=== PATIENT | male | born 1970 | race Caucasian/White ===

== ENCOUNTER 2016-08-16 10:25 | Emergency (ER) | payer OTHER ==
--- NOTE | 2016-08-16 15:57 | ED CLINICAL REPORT ---
Clinical Report - Physicians/Mid Levels [facility] [address] [place] [address] 08/16/2016 10:29 [id number] Time Seen: 10:50. Arrived- By private vehicle. Historian- patient. History limited by vague historian. HISTORY OF PRESENT ILLNESS Chief Complaint: DEPRESSED and SUICIDAL THOUGHTS. This started about 1 week ago. The patient has experienced situational problems related to significant other, personal finances, monetary problems and being homeless. The patient has had anxiety. Has been depressed and had suicidal thoughts. Expresses ambivalence. He inflicted self-injury to the right thigh (two stab wounds to his right thigh). The symptoms are described as severe. An injury is present. Location- right thigh. Additional history - atient was seen about 5 days ago at [place]. At that time he apparently stabbed himself in the leg with a "bayonet" thathe said at that time he had done to be "livia." When asked about this today he denies it He said that he did it because he wanted to hurt himself. He is vague about whether he feels suicidal but acknowledges that he is depressed and wants to hurt himself. Additionally he wants to have the wounds checked. REVIEW OF SYSTEMS No chills, fever, sweats, calf pain or chest pain. No cough, difficulty breathing, pedal edema, palpitations or abdominal pain. No constipation, diarrhea, nausea, vomiting or urinary problems. All systems otherwise negative, except as recorded above. SOCIAL HISTORY History of drug use: marijuana. He is homeless. Has poor social support. FAMILY HISTORY Denies family medical history. ADDITIONAL NOTES The nursing notes have been reviewed. PHYSICAL EXAM Vital Signs: 08/16/2016 10:33 BP: 133/78. HR: 88. RR: 16. O2 saturation: 100%. Temp: 97.8 F. Pain level now: 6/10. Have been reviewed. Appearance: Alert. Is disheveled. Eyes: Pupils equal, round and reactive to light. Neck: Neck supple. No carotid bruit. CVS: Normal heart rate and rhythm. Heart sounds normal. Respiratory: Breath sounds normal. Abdomen: Soft and nontender. Back: No tenderness. Skin: Skin warm and dry. He has a large bruise to the right leg. Multiple medium-sized deep stab wounds with tenderness on the right thigh. No erythema or increased warmth. Extremities: Extremities exhibit normal ROM. No lower extremity edema. Psych / Neuro: Flat affect. Cranial nerves normal (as tested). No cerebellar findings. No motor deficit. No sensory deficit. LABS, X-RAYS, AND EKG Laboratory Tests: UA-Culture if indicated: (BRIE: 08/16/2016 10:50) ( Mscvd 08/16/2016 11:24) Final results Test Result Flag Units (Reference) URINE COLOR YELLOW URINE APPEARANCE CLEAR URINE GLUCOSE NEGATIVE (NEGATIVE) URINE BILIRUBIN NEGATIVE (NEGATIVE) URINE KETONE NEGATIVE (NEGATIVE) URINE SPECIFIC GRAVITY 1.025 (1.010-1.030) URINE PH 5.5 (5.0-8.0) URINE PROTEIN NEGATIVE (NEGATIVE) URINE UROBILINOGEN 0.2 EU/dL (0.2-1.0) URINE NITRITE NEGATIVE (NEGATIVE) URINE BLOOD NEGATIVE (NEGATIVE) URINE LEUK ESTERASE NEGATIVE (NEGATIVE) URINE RBC 0-1 rbc/hpf (0-1) URINE WBC NONE SEEN wbc/hpf (0-1) URINE EPITHELIAL CELLS 1-3 EPI/hpf (0-5) URINE BACTERIA NONE SEEN (NONE SEEN) URINE COMMENT CULT NOT INDICATED URINE CULTURES ARE SET-UP BASED ON THE FOLLOWING CRITERIA:POSITIVE NITRITEPOSITIVE LEUKOCYTE ESTERASEGREATER THAN 10 WHITE BLOOD CELLSMODERATE (2+) OR GREATER BACTERIA CBC w Diff: (BRIE: 08/16/2016 10:52) ( Mscvd 08/16/2016 11:32) Final results Test Result Flag Units (Reference) WHITE BLOOD COUNT 9.4 K/uL (4.5-11.5) RED BLOOD COUNT 3.60 L M/uL (4.50-5.90) HEMOGLOBIN 11.0 L gm/dL (13.5-17.5) HEMATOCRIT 32.7 L % (41.0-53.0) MEAN CELL VOLUME 91 fL (80-100) MEAN CORPUSCULAR HGB 31 pg (26-34) MEAN CORPUSCULAR HGB CONC 34 g/dL (31-37) RED CELL DISTRIBUTION WIDTH 14.6 % (11.6-14.8) PLATELET COUNT 384 K/uL (150-400) NEUTROPHIL % 68.6 % (50-75) LYMPH % 20.0 L % (25-40) MONO % 8.8 % (3-14) EOSINOPHIL % 2.2 % (0-4) BASOPHIL % 0.4 % (0-2) Salicylate Level: (BRIE: 08/16/2016 10:52) ( [facility] 08/16/2016 12:10) Final results Test Result Flag Units (Reference) SALICYLATE <2.8 L mg/dL (2.8-20) CMP: (BRIE: 08/16/2016 10:50) ( [facility] 08/16/2016 11:57) Final results Test Result Flag Units (Reference) URINE DRUG SCREEN POSITIVE,Unconfirmed DRUGS DETECTED: THC (Cannabinoids) The urine drug screen is a qualitative screening test fordrug overdose and abuse. All screen results should beconsidered as presumptive.Drugs screened for are as follows:BenzodiazepinesCocaineAmphetamines/MetamphetaminesTHC (Tetrahydrocannabinol)OpiatesBarbituratesTCA (Tricyclic Antidepressants)MethadonePositive results are unconfirmed. For confirmation, notifythe lab for the specimen to be sent to the reference lab.All confirmations must be performed by a differentmethodology.The ingestion of natural herbal and plant productscontaining Ephedra/Ephedra metabolites can produce in urineone or more substances capable of cross reacting withamphetamine/methamphetamine immunoassays. This testprovides a preliminary result only. A more specificalternative chemical method must be used to obtain aconfirmed analytical result. GLUCOSE 105 mg/dL (70-110) BUN 12 mg/dL (7-18) CREATININE 0.8 mg/dL (0.6-1.3) Estimated GFR >60 mL/min Estimated GFR- >60 mL/min Note: Persistent reduction over 3 months in eGFR<60 mL/min/1.73 m2 defines CKD. Patients with eGFR values>=60 mL/min/1.73 m2 may also have CKD if evidence ofpersistent proteinuria. Additional information may be foundat www.kidney.org. SODIUM 141 mmol/L (136-145) POTASSIUM 4.1 mmol/L (3.5-5.1) CHLORIDE 104 mmol/L (98-107) CARBON DIOXIDE 28 mmol/L (21-32) CALCIUM 8.3 L mg/dL (8.5-10.1) TOTAL PROTEIN 6.9 g/dL (6.4-8.2) ALBUMIN 3.2 L g/dL (3.3-5.0) BILIRUBIN, TOTAL 0.5 mg/dL (0.0-1.0) ALKALINE PHOSPHATASE 118 H U/L (46-116) AST (SGOT) 79 H U/L (15-37) ALT (SGPT) 139 H U/L (12-78) ACETAMINOPHEN < 2 L ug/mL (10-30) . PROGRESS AND PROCEDURES Course of Care: Patient is stable. Consult obtained from mental [facility]. Case discussed. Consultation performed in ED. Patient/family counseled. Old medical records reviewed. (from [facility]). Disposition: Discharged. Condition: stable. CLINICAL IMPRESSION Depression. Multiple deep healing puncture wounds to the right thigh. INSTRUCTIONS Protect wound and keep wound area clean. Change dressing twice daily. You may wash wounds briefly, then dry. Apply neosporin twice daily. Stay with responsible adult family member (or other responsible adult). Warnings: Further evaluation is necessary. GENERAL WARNINGS: Return or contact your physician immediately if your condition worsens or changes unexpectedly, if not improving as expected, or if other problems arise. OTC Medications: Acetaminophen (available over the counter): take according to label instructions. Motrin (available over the counter): take according to label instructions. Understanding of the discharge instructions verbalized by patient. Follow-up with: [facility], , , [address], , [place], [address] Follow up tomorrow. Call for an appointment. Follow-up with: [facility], [facility] [employer], , , , , Follow up tomorrow. Call for the next available appointment. (Electronically signed by Glenn Veliz MD 08/21/2016 9:42)
--- NOTE | 2016-08-16 15:57 | ED CLINICAL REPORT ---
Clinical Report - Physicians/Mid Levels [facility] [address] [place] [address] 08/16/2016 10:29 [id number] Time Seen: 10:50. Arrived- By private vehicle. Historian- patient. History limited by vague historian. HISTORY OF PRESENT ILLNESS Chief Complaint: DEPRESSED and SUICIDAL THOUGHTS. This started about 1 week ago. The patient has experienced situational problems related to significant other, personal finances, monetary problems and being homeless. The patient has had anxiety. Has been depressed and had suicidal thoughts. Expresses ambivalence. He inflicted self-injury to the right thigh (two stab wounds to his right thigh). The symptoms are described as severe. An injury is present. Location- right thigh. Additional history - atient was seen about 5 days ago at [place]. At that time he apparently stabbed himself in the leg with a "bayonet" thathe said at that time he had done to be "livia." When asked about this today he denies it He said that he did it because he wanted to hurt himself. He is vague about whether he feels suicidal but acknowledges that he is depressed and wants to hurt himself. Additionally he wants to have the wounds checked. REVIEW OF SYSTEMS No chills, fever, sweats, calf pain or chest pain. No cough, difficulty breathing, pedal edema, palpitations or abdominal pain. No constipation, diarrhea, nausea, vomiting or urinary problems. All systems otherwise negative, except as recorded above. SOCIAL HISTORY History of drug use: marijuana. He is homeless. Has poor social support. FAMILY HISTORY Denies family medical history. ADDITIONAL NOTES The nursing notes have been reviewed. PHYSICAL EXAM Vital Signs: 08/16/2016 10:33 BP: 133/78. HR: 88. RR: 16. O2 saturation: 100%. Temp: 97.8 F. Pain level now: 6/10. Have been reviewed. Appearance: Alert. Is disheveled. Eyes: Pupils equal, round and reactive to light. Neck: Neck supple. No carotid bruit. CVS: Normal heart rate and rhythm. Heart sounds normal. Respiratory: Breath sounds normal. Abdomen: Soft and nontender. Back: No tenderness. Skin: Skin warm and dry. He has a large bruise to the right leg. Multiple medium-sized deep stab wounds with tenderness on the right thigh. No erythema or increased warmth. Extremities: Extremities exhibit normal ROM. No lower extremity edema. Psych / Neuro: Flat affect. Cranial nerves normal (as tested). No cerebellar findings. No motor deficit. No sensory deficit. LABS, X-RAYS, AND EKG Laboratory Tests: UA-Culture if indicated: (BRIE: 08/16/2016 10:50) ( Mscvd 08/16/2016 11:24) Final results Test Result Flag Units (Reference) URINE COLOR YELLOW URINE APPEARANCE CLEAR URINE GLUCOSE NEGATIVE (NEGATIVE) URINE BILIRUBIN NEGATIVE (NEGATIVE) URINE KETONE NEGATIVE (NEGATIVE) URINE SPECIFIC GRAVITY 1.025 (1.010-1.030) URINE PH 5.5 (5.0-8.0) URINE PROTEIN NEGATIVE (NEGATIVE) URINE UROBILINOGEN 0.2 EU/dL (0.2-1.0) URINE NITRITE NEGATIVE (NEGATIVE) URINE BLOOD NEGATIVE (NEGATIVE) URINE LEUK ESTERASE NEGATIVE (NEGATIVE) URINE RBC 0-1 rbc/hpf (0-1) URINE WBC NONE SEEN wbc/hpf (0-1) URINE EPITHELIAL CELLS 1-3 EPI/hpf (0-5) URINE BACTERIA NONE SEEN (NONE SEEN) URINE COMMENT CULT NOT INDICATED URINE CULTURES ARE SET-UP BASED ON THE FOLLOWING CRITERIA:POSITIVE NITRITEPOSITIVE LEUKOCYTE ESTERASEGREATER THAN 10 WHITE BLOOD CELLSMODERATE (2+) OR GREATER BACTERIA CBC w Diff: (BRIE: 08/16/2016 10:52) ( Mscvd 08/16/2016 11:32) Final results Test Result Flag Units (Reference) WHITE BLOOD COUNT 9.4 K/uL (4.5-11.5) RED BLOOD COUNT 3.60 L M/uL (4.50-5.90) HEMOGLOBIN 11.0 L gm/dL (13.5-17.5) HEMATOCRIT 32.7 L % (41.0-53.0) MEAN CELL VOLUME 91 fL (80-100) MEAN CORPUSCULAR HGB 31 pg (26-34) MEAN CORPUSCULAR HGB CONC 34 g/dL (31-37) RED CELL DISTRIBUTION WIDTH 14.6 % (11.6-14.8) PLATELET COUNT 384 K/uL (150-400) NEUTROPHIL % 68.6 % (50-75) LYMPH % 20.0 L % (25-40) MONO % 8.8 % (3-14) EOSINOPHIL % 2.2 % (0-4) BASOPHIL % 0.4 % (0-2) Salicylate Level: (BRIE: 08/16/2016 10:52) ( [facility] 08/16/2016 12:10) Final results Test Result Flag Units (Reference) SALICYLATE <2.8 L mg/dL (2.8-20) CMP: (BRIE: 08/16/2016 10:50) ( [facility] 08/16/2016 11:57) Final results Test Result Flag Units (Reference) URINE DRUG SCREEN POSITIVE,Unconfirmed DRUGS DETECTED: THC (Cannabinoids) The urine drug screen is a qualitative screening test fordrug overdose and abuse. All screen results should beconsidered as presumptive.Drugs screened for are as follows:BenzodiazepinesCocaineAmphetamines/MetamphetaminesTHC (Tetrahydrocannabinol)OpiatesBarbituratesTCA (Tricyclic Antidepressants)MethadonePositive results are unconfirmed. For confirmation, notifythe lab for the specimen to be sent to the reference lab.All confirmations must be performed by a differentmethodology.The ingestion of natural herbal and plant productscontaining Ephedra/Ephedra metabolites can produce in urineone or more substances capable of cross reacting withamphetamine/methamphetamine immunoassays. This testprovides a preliminary result only. A more specificalternative chemical method must be used to obtain aconfirmed analytical result. GLUCOSE 105 mg/dL (70-110) BUN 12 mg/dL (7-18) CREATININE 0.8 mg/dL (0.6-1.3) Estimated GFR >60 mL/min Estimated GFR- >60 mL/min Note: Persistent reduction over 3 months in eGFR<60 mL/min/1.73 m2 defines CKD. Patients with eGFR values>=60 mL/min/1.73 m2 may also have CKD if evidence ofpersistent proteinuria. Additional information may be foundat www.kidney.org. SODIUM 141 mmol/L (136-145) POTASSIUM 4.1 mmol/L (3.5-5.1) CHLORIDE 104 mmol/L (98-107) CARBON DIOXIDE 28 mmol/L (21-32) CALCIUM 8.3 L mg/dL (8.5-10.1) TOTAL PROTEIN 6.9 g/dL (6.4-8.2) ALBUMIN 3.2 L g/dL (3.3-5.0) BILIRUBIN, TOTAL 0.5 mg/dL (0.0-1.0) ALKALINE PHOSPHATASE 118 H U/L (46-116) AST (SGOT) 79 H U/L (15-37) ALT (SGPT) 139 H U/L (12-78) ACETAMINOPHEN < 2 L ug/mL (10-30) . PROGRESS AND PROCEDURES Course of Care: Patient is stable. Consult obtained from [facility]. Case discussed. Consultation performed in ED. Patient/family counseled. Old medical records reviewed. (from [facility] Disposition: Discharged. Condition: stable. CLINICAL IMPRESSION Depression. Multiple deep healing puncture wounds to the right thigh. INSTRUCTIONS Protect wound and keep wound area clean. Change dressing twice daily. You may wash wounds briefly, then dry. Apply neosporin twice daily. Stay with responsible adult family member (or other responsible adult). Warnings: Further evaluation is necessary. GENERAL WARNINGS: Return or contact your physician immediately if your condition worsens or changes unexpectedly, if not improving as expected, or if other problems arise. OTC Medications: Acetaminophen (available over the counter): take according to label instructions. Motrin (available over the counter): take according to label instructions. Understanding of the discharge instructions verbalized by patient. Follow-up with: [facility], , , [address], , [place], [address] Follow up tomorrow. Call for an appointment. [facility] [employer], , , , , Follow up tomorrow. Call for the next available appointment. (Electronically signed by Glenn Veliz MD 08/21/2016 9:42)
--- NOTE | 2016-08-16 15:57 | ED ORDER SUMMARY ---
..... Patient: ARABELLA NIEVES OrderSheet [facility] VisitID: [id number] [place] [address] 45y, M Registration Date/Time: 08/16/2016 ORDER SHEET Weight: 86.1 kg (stated) Allergies: No Known Drug Allergy GENERAL ORDERS: CBC w Diff Urgent (10:52 08/16/2016 Fuad KHAN) (Ack 10:54 KHoerner) (11:20 KHoerner) CMP Urgent (10:52 08/16/2016 Fuad KHAN) (Ack 10:54 KHoerner) (11:20 KHoerner) UA-Culture if indicated Urgent (10:52 08/16/2016 Fuad KHAN) (Ack 10:54 KHoerner) (11:03 JSanders R.N.) Urine Drug Screen Urgent (10:52 08/16/2016 Fuad KHAN) (Ack 10:54 KHoerner) (11:03 JSanders R.N.) Acetaminophen Level Urgent (10:52 08/16/2016 Fuad KHAN) (Ack 10:54 KHoerner) (11:20 KHoerner) Salicylate Level Urgent (10:52 08/16/2016 Fuad KHAN) (Ack 10:54 KHoerner) (11:20 KHoerner) Breathalyzer (10:52 08/16/2016 Fuad KHAN) (11:03 MARIA EUGENIAanders R.N.) Suicide Precautions (10:52 08/16/2016 Fuad KHAN) (10:55 MARIA EUGENIAanders R.N.) Old Records (10:52 08/16/2016 Fuad KHAN) (10:53 KHoerner) MEDICATION ORDERS: Nicotine Topical 21 mg (NOW) (12:49 08/16/2016 Raya R.N. verbal order read back to Fuad KHAN) (12:50 Raya R.N.) IV FLUIDS: ORDER SHEET NOTES: [Electronically signed by Ubaldo Chawla R.N. (16:38 08/16/2016)] [Electronically signed by Glenn Veliz MD (09:42 08/21/2016)] [Electronically locked/signed by Ubaldo Chawla R.N. (16:38 08/16/2016)]
--- NOTE | 2016-08-16 15:57 | ED ORDER SUMMARY ---
..... Patient: ARABELLA NIEVES OrderSheet [facility] VisitID: [id number] [place] [address] 45y, M Registration Date/Time: 08/16/2016 ORDER SHEET Weight: 86.1 kg (stated) Allergies: No Known Drug Allergy GENERAL ORDERS: CBC w Diff Urgent (10:52 08/16/2016 Fuad KHAN) (Ack 10:54 KHoerner) (11:20 KHoerner) CMP Urgent (10:52 08/16/2016 Fuad KHAN) (Ack 10:54 KHoerner) (11:20 KHoerner) UA-Culture if indicated Urgent (10:52 08/16/2016 Fuad KHAN) (Ack 10:54 KHoerner) (11:03 JSanders R.N.) Urine Drug Screen Urgent (10:52 08/16/2016 Fuad KHAN) (Ack 10:54 KHoerner) (11:03 JSanders R.N.) Acetaminophen Level Urgent (10:52 08/16/2016 Fuad KHAN) (Ack 10:54 KHoerner) (11:20 KHoerner) Salicylate Level Urgent (10:52 08/16/2016 Fuad KHAN) (Ack 10:54 KHoerner) (11:20 KHoerner) Breathalyzer (10:52 08/16/2016 Fuad KHAN) (11:03 MARIA EUGENIAanders R.N.) Suicide Precautions (10:52 08/16/2016 Fuad KHAN) (10:55 MARIA EUGENIAanders R.N.) Old Records (10:52 08/16/2016 Fuad KHAN) (10:53 KHoerner) MEDICATION ORDERS: Nicotine Topical 21 mg (NOW) (12:49 08/16/2016 Raya R.N. verbal order read back to Fuad KHAN) (12:50 Raya R.N.) IV FLUIDS: ORDER SHEET NOTES: [Electronically signed by Ubaldo Chawla R.N. (16:38 08/16/2016)] [Electronically signed by Glenn Veliz MD (09:42 08/21/2016)] [Electronically locked/signed by Ubaldo Chawla R.N. (16:38 08/16/2016)]
--- NOTE | 2016-08-16 15:57 | ED NURSING NOTES ---
Clinical Report - [facility] [place] [address] 08/16/2016 10:29 [id number] Triage time 10:33 Aug 16 2016. Acuity: LEVEL 4. Chief Complaint: LEFT LOWER EXTREMITY REDNESS. SEPSIS SCREEN: Sepsis Screen. Negative (no infection suspected/documented). JOE COMA SCORE: Joe Coma Scale: 15- eyes open spontaneously (4); best verbal response- oriented x 4 (5); best motor response- obeys commands (6). --10:38 Julee Coffman R.N. 10:33 08/16/16. BP: 133/78 (regular adult cuff) taken on the left arm, while lying. HR: 88. RR: 16. O2 saturation: 100% on room air. Temp: 97.8 F (oral). Pain level now: 10/15. --10:38 Julee Coffman R.N. BREATHALYZER: Breathalyzer (0). --10:59 Julee Coffman R.N. Weight: 86.1 kg stated. Height/Length: 73 inches Per Patient. BMI: 25. --10:36 Julee Coffman R.N. Medications None. --10:35 Julee Coffman R.N. Allergies No Known Drug Allergy. --10:35 Julee Coffman R.N. History Arrived by private vehicle. Historian: patient. ( Patient working with a [employer] and fell on to it on 08/12/16. ABX x 3 days then lost script). Injury occurred. This occurred (08/12/16). He has had swelling, redness and trouble walking. 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 PAST MEDICAL HX: Negative. Tetanus status: up-to-date. SOCIAL HX: Current every day heavy tobacco smoker- 1 pack per day. History of occasional drug use: marijuana. Recently used drugs yesterday. No alcohol use. No infectious disease exposure. ABUSE ASSESSMENT: No report of abuse. --10:38 Julee Coffman R.N. SELF HARM ASSESSMENT: A self harm assessment was performed. The patient answered "yes" to the question "Have you recently felt down, depressed, or hopeless?", "Do you have thoughts of harming or killing yourself?" and "Are you here because you tried to hurt yourself?" and "no" to the question "Have you noticed less interest or pleasure in doing things?", "Have you ever tried to hurt yourself before today?", "Have you recently had thoughts about harming or killing others?" and "Do you have any dangerous items in your possession?". The patient reports their behavior included suicidal comments. In the ED the patient has sustained a self inflicted injury. He has been placed under frequent supervision with bedside precautions. He was placed in direct sight of the nurses station. Clothes and valuables were removed and placed at the nurses station. The ED physician has been notified. (Patient is here for ABX for his leg and commented at triage that he harmed himself this time and has felt like trying to before but hasnt). --11:03 Julee Coffman R.N. PROBLEMS: no known problems. ADDITIONAL SURGERIES: Back Surgery. --10:37 Julee Coffman R.N. Interventions ID band on patient. To treatment room. --10:38 Julee Coffman R.N. PHYSICAL ASSESSMENT 10:39 08/16/16. To room via wheelchair. Patient gowned. GENERAL / NEURO / PSYCH: Oriented X 4. Appears in pain. EXTREMITIES: Erythema on the extremities. Right thigh: tenderness, swelling, laceration with controlled bleeding and multiple puncture wounds located in the anterior and lateral aspect of lower thigh. SKIN: Extremity wound present. Skin intact. Skin is warm. --10:39 Julee Coffman R.N. NURSING PROGRESS NOTES 10:40 08/16/16. The plan of care for this patient has been created. Patient gowned. Reassurance given. Two patient identifiers checked. Call light placed in reach. Side rails up x 1. Bed placed in lowest position. Brakes of bed on. Patient ready for evaluation- chart flagged and ED physician notified. --10:40 Julee Coffman R.N. ( Patient tearful saying that he stabbed himself on purpose, he says he has done this before, when asked if he is depressed and thought about suicide he says yes but he doesn't have a plan.). --10:50 Julee Coffman R.N. ( After moving patient to room #13, in site of nurses station, patient stated he is fine today and doesn't feel like hurting himself right now). --10:51 Julee Coffman R.N. ( Breathalyzer done, showed 0.00). --11:06 Boaz Son ER Tech1 Applied bulky dressing, following the application of antibiotic ointment. Secured with tape and kerlix (ointment x 2). --11:07 Nancy Walsh ER Tech1 ( PT used bathroom independently.). --11:09 Boaz Son ER Tech1 ( Patient offered something to drink or eat, he refused). --11:55 Julee Coffman R.N. late entry -12:01. ( Pt requested to see friend who is in car, spoke with MD, MD does not want patient to see friend until he evaluates the patient). --12:20 Ubaldo Chawla R.N. 12:22 08/16/16. ( Per ER MD patient was able to see friend, educational technician went to vehicle to notify friend that she can come see patient). --12:22 Ubaldo Chawla R.N. 12:50 08/16/2016 NICOTINE Topical 21 mg. Applied to the right upper arm. Allergies verified and confirmed 5 rights. --12:50 Ubaldo Chawla R.N. 12:50 08/16/16. ( Pt wanted to go smoke, pt aware he cannot at this time, gave pt a nicotine patch). --12:50 Ubaldo Chawla R.N. 12:52 08/16/16. ( PAT team called for eval). --12:52 Jade Mckeon R.N. ( Patients friend is now at patients bedside, she requests jello and cup of ice for her pop she brought with her, this was given. They were informed that the PAT team will call back with an ETA. They are both understanding of this and both admit he needs to talk to someone about his thought of injuring himself.). --13:28 Julee Coffman R.N. ( Still waiting call from PAT team on ETA). --13:46 Julee Coffman R.N. ( Patients friend left bedside to smoke, patient up for restroom and now back in room). --14:03 Julee Coffman R.N. 14:29 08/16/16. ( ETA of PAT team is 1545, notified patient and family). --14:29 Ubaldo Chawla R.N. ( Patients friend back at patients bedside.). --14:44 Julee Coffman R.N. ( PAT team has arrived). --15:13 Julee Coffman R.N. 15:22 08/16/16. ( Patient notified that PAT team has arrived). --15:22 Ubaldo Chawla R.N. ( Mental health counselor in with patient now, friend left the room). --15:30 Julee Coffman R.N. ( Patients friend back in with patient and mental health counselor). --15:35 Julee Coffman R.N. 15:51 08/16/16. ( Pt to be discharged). --15:51 Ubaldo Chawla R.N. late entry -16:14. ( Pt cleared by MHP and ER MD to go home, pt aware to follow up VICENTE.). --16:38 Ubaldo Chawla R.N. DISPOSITION / DISCHARGE 16:14 08/16/16. Condition at departure: improved. The goals identified in the patient's plan of care were met. No learning barriers present. Discharge instructions provided and reviewed with company accountant and the patient. Reviewed warnings. Reviewed medication(s). Treatments reviewed. Reviewed referrals (PCP). Patient and company accountant verbalized understanding. Written instructions provided in Spanish. The patient was discharged by the physician. He was discharged home and accompanied by company accountant. He left the Emergency Department ambulatory and via private vehicle. County Commissioner driving. ( Pt discharged home with dressing changing material, Bactrian, and snacks (sandwich, drinks, crackers)). FALL RISK ASSESSMENT: Fall risk assessment completed. No fall risk identified. --16:14 Ubaldo Chawla R.N. 16:12 08/16/16. BP: deferred. HR: deferred. RR: deferred. O2 saturation: deferred. Temp: deferred. Pain level now: 0/10. Additional comments: Pt refused DC vitals, pt stated, "I need to have a smoke". --16:14 Ubaldo Chawla R.N. 16:14 08/16/16. Departure time: 16:14. --16:14 Ubaldo Chawla R.N. Locked/Released at 08/16/2016 16:38 by Ubaldo Chawla R.N.
--- NOTE | 2016-08-16 15:57 | ED NURSING NOTES ---
Clinical Report - [facility] [place] [address] 08/16/2016 10:29 [id number] Triage time 10:33 Aug 16 2016. Acuity: LEVEL 4. Chief Complaint: LEFT LOWER EXTREMITY REDNESS. SEPSIS SCREEN: Sepsis Screen. Negative (no infection suspected/documented). JOE COMA SCORE: Joe Coma Scale: 15- eyes open spontaneously (4); best verbal response- oriented x 4 (5); best motor response- obeys commands (6). --10:38 Julee Coffman R.N. 10:33 08/16/16. BP: 133/78 (regular adult cuff) taken on the left arm, while lying. HR: 88. RR: 16. O2 saturation: 100% on room air. Temp: 97.8 F (oral). Pain level now: 10/15. --10:38 Julee Coffman R.N. BREATHALYZER: Breathalyzer (0). --10:59 Julee Coffman R.N. Weight: 86.1 kg stated. Height/Length: 73 inches Per Patient. BMI: 25. --10:36 Julee Coffman R.N. Medications None. --10:35 Julee Coffman R.N. Allergies No Known Drug Allergy. --10:35 Julee Coffman R.N. History Arrived by private vehicle. Historian: patient. ( Patient working with a [employer] and fell on to it on 08/12/16. ABX x 3 days then lost script). Injury occurred. This occurred (08/12/16). He has had swelling, redness and trouble walking. 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 PAST MEDICAL HX: Negative. Tetanus status: up-to-date. SOCIAL HX: Current every day heavy tobacco smoker- 1 pack per day. History of occasional drug use: marijuana. Recently used drugs yesterday. No alcohol use. No infectious disease exposure. ABUSE ASSESSMENT: No report of abuse. --10:38 Julee Coffman R.N. SELF HARM ASSESSMENT: A self harm assessment was performed. The patient answered "yes" to the question "Have you recently felt down, depressed, or hopeless?", "Do you have thoughts of harming or killing yourself?" and "Are you here because you tried to hurt yourself?" and "no" to the question "Have you noticed less interest or pleasure in doing things?", "Have you ever tried to hurt yourself before today?", "Have you recently had thoughts about harming or killing others?" and "Do you have any dangerous items in your possession?". The patient reports their behavior included suicidal comments. In the ED the patient has sustained a self inflicted injury. He has been placed under frequent supervision with bedside precautions. He was placed in direct sight of the nurses station. Clothes and valuables were removed and placed at the nurses station. The ED physician has been notified. (Patient is here for ABX for his leg and commented at triage that he harmed himself this time and has felt like trying to before but hasnt). --11:03 Julee Coffman R.N. PROBLEMS: no known problems. ADDITIONAL SURGERIES: Back Surgery. --10:37 Julee Coffman R.N. Interventions ID band on patient. To treatment room. --10:38 Julee Coffman R.N. PHYSICAL ASSESSMENT 10:39 08/16/16. To room via wheelchair. Patient gowned. GENERAL / NEURO / PSYCH: Oriented X 4. Appears in pain. EXTREMITIES: Erythema on the extremities. Right thigh: tenderness, swelling, laceration with controlled bleeding and multiple puncture wounds located in the anterior and lateral aspect of lower thigh. SKIN: Extremity wound present. Skin intact. Skin is warm. --10:39 Julee Coffman R.N. NURSING PROGRESS NOTES 10:40 08/16/16. The plan of care for this patient has been created. Patient gowned. Reassurance given. Two patient identifiers checked. Call light placed in reach. Side rails up x 1. Bed placed in lowest position. Brakes of bed on. Patient ready for evaluation- chart flagged and ED physician notified. --10:40 Julee Coffman R.N. ( Patient tearful saying that he stabbed himself on purpose, he says he has done this before, when asked if he is depressed and thought about suicide he says yes but he doesn't have a plan.). --10:50 Julee Coffman R.N. ( After moving patient to room #13, in site of nurses station, patient stated he is fine today and doesn't feel like hurting himself right now). --10:51 Julee Coffman R.N. ( Breathalyzer done, showed 0.00). --11:06 Boaz Son ER Tech1 Applied bulky dressing, following the application of antibiotic ointment. Secured with tape and kerlix (ointment x 2). --11:07 Nancy Walsh ER Tech1 ( PT used bathroom independently.). --11:09 Boaz Son ER Tech1 ( Patient offered something to drink or eat, he refused). --11:55 Julee Coffman R.N. late entry -12:01. ( Pt requested to see friend who is in car, spoke with MD, MD does not want patient to see friend until he evaluates the patient). --12:20 Ubaldo Chawla R.N. 12:22 08/16/16. ( Per ER MD patient was able to see friend, pharmacy technician went to vehicle to notify friend that she can come see patient). --12:22 Ubaldo Chawla R.N. 12:50 08/16/2016 NICOTINE Topical 21 mg. Applied to the right upper arm. Allergies verified and confirmed 5 rights. --12:50 Ubaldo Chawla R.N. 12:50 08/16/16. ( Pt wanted to go smoke, pt aware he cannot at this time, gave pt a nicotine patch). --12:50 Ubaldo Chawla R.N. 12:52 08/16/16. ( PAT team called for eval). --12:52 Jade Mckeon R.N. ( Patients friend is now at patients bedside, she requests jello and cup of ice for her pop she brought with her, this was given. They were informed that the PAT team will call back with an ETA. They are both understanding of this and both admit he needs to talk to someone about his thought of injuring himself.). --13:28 Julee Coffman R.N. ( Still waiting call from PAT team on ETA). --13:46 Julee Coffman R.N. ( Patients friend left bedside to smoke, patient up for restroom and now back in room). --14:03 Julee Coffman R.N. 14:29 08/16/16. ( ETA of PAT team is 1545, notified patient and family). --14:29 Ubaldo Chawla R.N. ( Patients friend back at patients bedside.). --14:44 Julee Coffman R.N. ( PAT team has arrived). --15:13 Julee Coffman R.N. 15:22 08/16/16. ( Patient notified that PAT team has arrived). --15:22 Ubaldo Chawla R.N. ( Mental health counselor in with patient now, friend left the room). --15:30 Julee Coffman R.N. ( Patients friend back in with patient and mental health counselor). --15:35 Julee Coffman R.N. 15:51 08/16/16. ( Pt to be discharged). --15:51 Ubaldo Chawla R.N. late entry -16:14. ( Pt cleared by MHP and ER MD to go home, pt aware to follow up VICENTE.). --16:38 Ubaldo Chawla R.N. DISPOSITION / DISCHARGE 16:14 08/16/16. Condition at departure: improved. The goals identified in the patient's plan of care were met. No learning barriers present. Discharge instructions provided and reviewed with domestic technician and the patient. Reviewed warnings. Reviewed medication(s). Treatments reviewed. Reviewed referrals (PCP). Patient and domestic technician verbalized understanding. Written instructions provided in Dutch. The patient was discharged by the physician. He was discharged home and accompanied by domestic technician. He left the Emergency Department ambulatory and via private vehicle. Family Counselor driving. ( Pt discharged home with dressing changing material, Bactrian, and snacks (sandwich, drinks, crackers)). FALL RISK ASSESSMENT: Fall risk assessment completed. No fall risk identified. --16:14 Ubaldo Chawla R.N. 16:12 08/16/16. BP: deferred. HR: deferred. RR: deferred. O2 saturation: deferred. Temp: deferred. Pain level now: 0/10. Additional comments: Pt refused DC vitals, pt stated, "I need to have a smoke". --16:14 Ubaldo Chawla R.N. 16:14 08/16/16. Departure time: 16:14. --16:14 Ubaldo Chawla R.N. Locked/Released at 08/16/2016 16:38 by Ubaldo Chawla R.N.
--- NOTE | 2016-08-21 09:42 | ED DISCHARGE INSTRUCTIONS ---
Patient: ARABELLA NIEVES General Instructions [facility] VisitID: [id number] [address] [place] [address] 45y, M Registration Date/Time: 08/16/2016 Depression. Multiple deep healing puncture wounds to the right thigh. INSTRUCTIONS Protect wound and keep wound area clean. Change dressing twice daily. You may wash wounds briefly, then dry. Apply neosporin twice daily. Stay with responsible adult family member (or other responsible adult). Warnings: Further evaluation is necessary. GENERAL WARNINGS: Return or contact your physician immediately if your condition worsens or changes unexpectedly, if not improving as expected, or if other problems arise. OTC Medications: Acetaminophen (available over the counter): take according to label instructions. Motrin (available over the counter): take according to label instructions. Understanding of the discharge instructions verbalized by patient. Follow-up with: [facility], , , [address], , [place], [id number] Follow up tomorrow. Call for an appointment. Follow-up with: [facility], [employer] [employer], , , , , Follow up tomorrow. Call for the next available appointment. ADDITIONAL INFORMATION Depression Depression is one of the most common mental health problems today. It is not just a state of unhappiness or sadness. It is a true disease. The cause seems to be related to a decrease in chemicals that transmit signals in the brain. Having a family history of depression, alcoholism or suicide increases the risk. Chronic illness, chronic pain, migraine headaches and high emotional stress also increase the risk. Depression can cause many different symptoms, such as: -- Loss of appetite -- Over-eating -- Not being able to sleep -- Sleeping too much -- Tiredness not related to physical exertion -- Restlessness or irritability -- Slowness of movement or speech -- Feeling depressed or withdrawn -- Loss of interest in things you once enjoyed -- Difficulty in concentrating, poor memory, have trouble making decisions -- Thoughts of harming or killing oneself, or thoughts that life is not worth living -- Low self-esteem The best treatment for depression is a combination of medicine and psychotherapy. Antidepressant medicines can reduce suffering and can improve the ability to function during the depressed period. Therapy can offer emotional support and help you understand emotional factors that may be causing the depression. Home Care: 1) Be kind to yourself. Make it a point to do things that you enjoy (gardening, walking in nature, going to a movie, etc.). Reward yourself for small successes. 2) Take care of your physical body. Eat a balanced diet (low in saturated fat and high in fruits and vegetables). Establish an exercise plan at least 3 times a week for 30 minutes. Even mild-moderate exercise (like brisk walking) can make you feel better. 3) Avoid alcohol, which can make depression worse. Follow-Up with your doctor as advised. It is important to keep in contact with a health care provider until your symptoms begin to improve. Get Prompt Medical Attention if any of the following occur: -- Feeling extreme depression, fear, anxiety, or anger toward yourself or others -- Feeling out of control -- Feeling that you may try to harm yourself or another -- Hearing voices that others do not hear -- Seeing things that others do not see -- Cant sleep or eat for 3 days in a row Puncture Wound (General) A puncture wound is a hole through the skin. Bacteria, dirt and debris can be drawn into this wound, increasing the risk of infection. However, antibiotics are usually not prescribed for this injury unless signs of infection are already present. Therefore, it is important to observe the wound closely for the signs of infection listed below. Home Care: If your wound is on an arm, hand, leg, or foot, keep that part raised during the first 48 hours to reduce swelling and pain. Keep the wound clean and dry. If a bandage was applied and it becomes wet or dirty, replace it. Otherwise, leave it in place for the next 24 hours. You may use acetaminophen (Tylenol) or ibuprofen (Motrin, Advil) to control pain, unless another medicine was prescribed. [NOTE: If you have chronic liver or kidney disease or ever had a stomach ulcer or GI bleeding, talk with your doctor before using these medicines.] You may shower as usual. However, do not soak the area in water (no baths or swimming) during the first 48 hours. Follow Up: Most puncture wounds heal within 10 days. However, an infection may sometimes occur despite proper treatment. If small particles were drawn into the puncture wound (such as fragments of cloth, rubber, wood or dirt), an infection may occur. These fragments are very hard to find during the first exam since it is not possible to get a good look inside a puncture wound and they do not show on an X-ray. Antibiotics and a minor surgical procedure to find and remove the foreign object will be needed if this happens. Therefore, check the wound daily for the warning signs listed below. Get Prompt Medical Attention if any of the following occur: SIGNS OF INFECTION: Increasing pain in the wound Redness, swelling, pus or red lines coming from the wound Fever of 100.4F (38C) or higher, or as directed by your healthcare provider Bandage Change If the bandage becomes wet or dirty, replace it. Otherwise, leave it in place for the first 24 hours. Then once a day: After removing the bandage, wash the area with soap and water. Use a wet cotton swab to loosen and remove any blood or crust that forms on the wound. After cleaning, apply a thin layer of antibiotic ointment or cream. Reapply the bandage. You may shower as usual after the first 24 hours. If the bandage is on an arm or leg, cover it with a plastic bag rubber banded at both ends before showering. No tub baths or swimming until the bandage is removed and the wound healed (at least 7 days). Acetaminophen Oral tablet What is this medicine? ACETAMINOPHEN (a set a SKYLAR tanisha fen) is a pain reliever. It is used to treat mild pain and fever. How should I use this medicine? Take this medicine by mouth with a glass of water. Follow the directions on the package or prescription label. Take your medicine at regular intervals. Do not take your medicine more often than directed. Talk to your staff services manager regarding the use of this medicine in children. While this drug may be prescribed for children as young as 6 years of age for selected conditions, precautions do apply. What side effects may I notice from receiving this medicine? Side effects that you should report to your doctor or health respiratory care assistant as soon as possible: allergic reactions like skin rash, itching or hives, swelling of the face, lips, or tongue breathing problems fever or sore throat redness, blistering, peeling or loosening of the skin, including inside the mouth trouble passing urine or change in the amount of urine unusual bleeding or bruising unusually weak or tired yellowing of the eyes or skin Side effects that usually do not require medical attention (report to your doctor or health respiratory care assistant if they continue or are bothersome): headache nausea, stomach upset What may interact with this medicine? alcohol imatinib isoniazid other medicines with acetaminophen What if I miss a dose? If you miss a dose, take it as soon as you can. If it is almost time for your next dose, take only that dose. Do not take double or extra doses. Where should I keep my medicine? Keep out of reach of children. Store at room temperature between 20 and 25 degrees C (68 and 77 degrees F). Protect from moisture and heat. Throw away any unused medicine after the expiration date. What should I tell my health care provider before I take this medicine? They need to know if you have any of these conditions: if you frequently drink alcohol containing drinks liver disease an unusual or allergic reaction to acetaminophen, other medicines, foods, dyes or preservatives or trying to get breast-feeding What should I watch for while using this medicine? Tell your doctor or health respiratory care assistant if the pain lasts more than 10 days (5 days for children), if it gets worse, or if there is a new or different kind of pain. Also, check with your doctor if a fever lasts for more than 3 days. Do not take other medicines that contain acetaminophen with this medicine. Always read labels carefully. If you have questions, ask your doctor or pharmacist. If you take too much acetaminophen get medical help right away. Too much acetaminophen can be very dangerous and cause liver damage. Even if you do not have symptoms, it is important to get help right away. Ibuprofen Oral tablet What is this medicine? IBUPROFEN (eye BYOO proe fen) is a non-steroidal anti-inflammatory drug (NSAID). It is used for dental pain, fever, headaches or migraines, osteoarthritis, rheumatoid arthritis, or painful monthly periods. It can also relieve minor aches and pains caused by a cold, flu, or sore throat. How should I use this medicine? Take this medicine by mouth with a glass of water. Follow the directions on the prescription label. Take this medicine with food if your stomach gets upset. Try to not lie down for at least 10 minutes after you take the medicine. Take your medicine at regular intervals. Do not take your medicine more often than directed. A special MedGuide will be given to you by the pharmacist with each prescription and refill. Be sure to read this information carefully each time. Talk to your staff services manager regarding the use of this medicine in children. Special care may be needed. What side effects may I notice from receiving this medicine? Side effects that you should report to your doctor or health respiratory care assistant as soon as possible: allergic reactions like skin rash, itching or hives, swelling of the face, lips, or tongue black or bloody stools, blood in the urine or in vomit breathing problems changes in vision chest pain general ill feeling or flu-like symptoms nausea or vomiting redness, blistering, peeling or loosening of the skin, including inside the mouth slurred speech or weakness on one side of the body stomach pain unexplained weight gain or swelling unusually weak or tired yellowing of eyes or skin Side effects that usually do not require medical attention (report to your doctor or health respiratory care assistant if they continue or are bothersome): constipation or diarrhea dizziness gas or heartburn stomach upset What may interact with this medicine? Do not take this medicine with any of the following medications: cidofovir ketorolac methotrexate pemetrexed This medicine may also interact with the following medications: alcohol aspirin diuretics lithium other drugs for inflammation like prednisone warfarin What if I miss a dose? If you miss a dose, take it as soon as you can. If it is almost time for your next dose, take only that dose. Do not take double or extra doses. Where should I keep my medicine? Keep out of the reach of children. Store at room temperature between 15 and 30 degrees C (59 and 86 degrees F). Keep container tightly closed. Throw away any unused medicine after the expiration date. What should I tell my health care provider before I take this medicine? They need to know if you have any of these conditions: asthma cigarette smoker drink more than 3 alcohol containing drinks a day heart disease or circulation problems such as heart failure or leg edema (fluid retention) high blood pressure kidney disease liver disease stomach bleeding or ulcers an unusual or allergic reaction to ibuprofen, aspirin, other NSAIDS, other medicines, foods, dyes, or preservatives or trying to get breast-feeding What should I watch for while using this medicine? Tell your doctor or healthcare professional if your symptoms do not start to get better or if they get worse. This medicine does not prevent heart attack or stroke. In fact, this medicine may increase the chance of a heart attack or stroke. The chance may increase with longer use of this medicine and in people who have heart disease. If you take aspirin to prevent heart attack or stroke, talk with your doctor or health respiratory care assistant. Do not take other medicines that contain aspirin, ibuprofen, or naproxen with this medicine. Side effects such as stomach upset, nausea, or ulcers may be more likely to occur. Many medicines available without a prescription should not be taken with this medicine. This medicine can cause ulcers and bleeding in the stomach and intestines at any time during treatment. Ulcers and bleeding can happen without warning symptoms and can cause . To reduce your risk, do not smoke cigarettes or drink alcohol while you are taking this medicine. You may get drowsy or dizzy. Do not drive, use machinery, or do anything that needs mental alertness until you know how this medicine affects you. Do not stand or sit up quickly, especially if you are an older patient. This reduces the risk of dizzy or fainting spells. This medicine can cause you to bleed more easily. Try to avoid damage to your teeth and gums when you brush or floss your teeth. You have been given the following additional information: Depression Puncture Wound, General Dressing Change Acetaminophen Oral tablet Ibuprofen Oral tablet Stay with responsible adult family member (or other responsible adult). (Electronically signed by Glenn Veliz MD 08/21/2016 9:42)
--- NOTE | 2016-08-21 09:43 | ED MAR SUMMARY ---
..... Medication Administration Record [facility] [address] [place] [address] Patient: ARABELLA NIEVES Visit ID: [id number] 45y, M Weight: 86.1 kg Height/Length: 73 in BMI: 25 ALLERGIES: No Known Drug Allergy Given 12:50 08/16/2016 Ubaldo Chawla R.N. Medication Administered: NICOTINE [TOPICAL], Dose: 21 mg Topical. Medication Ordered: Nicotine Topical 21 mg (NOW).
--- NOTE | 2016-08-21 09:43 | ED MED RECONCILIATION SUMMARY ---
Patient: ARABELLA NIEVES Medication Reconciliation Report [facility] VisitID: [id number] [address] [place] [address] 45y, M Registration Date/Time: 08/16/2016 Weight: 86.1 kg Height/Length: 73 in. BMI: 25.0 ALLERGIES: No Known Drug Allergy The patient's Home Medications are listed below: NONE. The source(s) of the original Home Medication information: Not obtained. The following Medications were given to the patient in the Emergency Department: NICOTINE [TOPICAL] Topical 21 mg, administered: 08/16/2016 12:50:00 PM The following Medications were prescribed to the patient: Acetaminophen (available over the counter): take according to label instructions. -- Glenn Veliz MD Motrin (available over the counter): take according to label instructions. -- Glenn Veliz MD
--- NOTE | 2016-08-21 09:43 | ED MED RECONCILIATION SUMMARY ---
Patient: ARABELLA NIEVES Medication Reconciliation Report [facility] VisitID: [id number] [address] [place] [address] 45y, M Registration Date/Time: 08/16/2016 Weight: 86.1 kg Height/Length: 73 in. BMI: 25.0 ALLERGIES: No Known Drug Allergy The patient's Home Medications are listed below: NONE. The source(s) of the original Home Medication information: Not obtained. The following Medications were given to the patient in the Emergency Department: NICOTINE [TOPICAL] Topical 21 mg, administered: 08/16/2016 12:50:00 PM The following Medications were prescribed to the patient: Acetaminophen (available over the counter): take according to label instructions. -- Glenn Veliz MD Motrin (available over the counter): take according to label instructions. -- Glenn Veliz MD
--- NOTE | 2016-08-21 09:43 | ED MAR SUMMARY ---
..... Medication Administration Record [facility] [address] [place] [address] Patient: ARABELLA NIEVES Visit ID: [id number] 45y, M Weight: 86.1 kg Height/Length: 73 in BMI: 25 ALLERGIES: No Known Drug Allergy Given 12:50 08/16/2016 Ubaldo Chawla R.N. Medication Administered: NICOTINE [TOPICAL], Dose: 21 mg Topical. Medication Ordered: Nicotine Topical 21 mg (NOW).
== END 2016-08-16 16:14 | disposition home or self-care (01) ==
LOC: ED SRH 10:25
DX: F32.9 Major depressive disorder, single episode, unspecified (principal); S71.131A Puncture wound without foreign body, right thigh, initial encounter; Y28.2XXA Contact with sword or dagger, undetermined intent, initial encounter; Y93.9 Activity, unspecified; Y92.9 Unspecified place or not applicable; Y99.9 Unspecified external cause status; Z59.0 Homelessness
CPT/HCPCS: 90004; 90100; 90939; 92780; 95059; 97000

== ENCOUNTER 2016-09-03 21:07 | Emergency (ER) | payer OTHER ==
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
--- NOTE | 2016-09-03 22:25 | ED DISCHARGE INSTRUCTIONS ---
Patient: ARABELLA NIEVES General Instructions [facility] VisitID: [id number] [address] [place] [address] 45y, M Registration Date/Time: 09/03/2016 Wound check. Single deep healing laceration to the right thigh.Treatment of laceration not delayed. No infection or foreign body present. INSTRUCTIONS Protect wound and keep wound area clean. You may wash wounds briefly, then dry. Warnings: CONTROLLED SUBSTANCE WARNINGS: The reason for controlled substance is related to an acute illness. Reviewed the risks and benefits of the medication and tolerance and dependence. Discussed warnings with the patient (Do NOT mix any prescriptions with any drugs or alcohol!). GENERAL WARNINGS: Return or contact your physician immediately if your condition worsens or changes unexpectedly, if not improving as expected, or if other problems arise. Specifically return if problem worsens. Prescription Medications: Zofran 4 mg: Take 1 orally every six hours as needed for nausea/vomiting. Dispense ten (10). No refills. Substitution is permissible. [place] 5 mg / 325 mg tablets: take 1 to 2 orally every 6 hours as needed for pain. Dispense fifteen (15). No refills. Substitution is permissible. Motrin 800 mg tablets: take 1 tablet orally every 8 hours as needed for pain. Dispense thirty (30). No refills. Substitution is permissible. Bactrim DS 800 mg / 160 mg: Take 1 tablet orally every 12 hours for 7 days. Dispense fourteen (14). No refills. Substitution is permissible. Clindamycin 300 mg: take 1 capsule orally every 6 hours for 7 days. No refills. Ativan 1 mg: Take 1 orally every 8 hours as needed for anxiety. Dispense fifteen (15). No refills. Substitution is permissible. Follow-up: Follow up with a wound care clinic Monday as scheduled even if well. Summary of care provided to patient. Follow up with doctor counselor Monday as scheduled even if well. Summary of care provided to patient. Understanding of the discharge instructions verbalized by patient and family. ADDITIONAL INFORMATION Ondansetron Oral disintegrating tablet What is this medicine? ONDANSETRON (on LASHAUN se david) is used to treat nausea and vomiting caused by chemotherapy. It is also used to prevent or treat nausea and vomiting after surgery. How should I use this medicine? These tablets are made to dissolve in the mouth. Do not try to push the tablet through the foil backing. With dry hands, peel away the foil backing and gently remove the tablet. Place the tablet in the mouth and allow it to dissolve, then swallow. While you may take these tablets with water, it is not necessary to do so. Talk to your sterile processing tech regarding the use of this medicine in children. Special care may be needed. What side effects may I notice from receiving this medicine? Side effects that you should report to your doctor or health direct care supervisor as soon as possible: allergic reactions like skin rash, itching or hives, swelling of the face, lips, or tongue breathing problems dizziness fast or irregular heartbeat feeling faint or lightheaded, falls fever and chills swelling of the hands and feet tightness in the chest Side effects that usually do not require medical attention (report to your doctor or health direct care supervisor if they continue or are bothersome): constipation or diarrhea headache What may interact with this medicine? Do not take this medicine with any of the following medications: -apomorphine -cisapride -dofetilide -dronedarone -pimozide -thioridazine -ziprasidone This medicine may also interact with the following medications: -carbamazepine -phenytoin -rifampicin -tramadol -other medicines that prolong the QT interval (cause an abnormal heart rhythm) What if I miss a dose? If you miss a dose, take it as soon as you can. If it is almost time for your next dose, take only that dose. Do not take double or extra doses. Where should I keep my medicine? Keep out of the reach of children. Store between 2 and 30 degrees C (36 and 86 degrees F). Throw away any unused medicine after the expiration date. What should I tell my health care provider before I take this medicine? They need to know if you have any of these conditions: heart disease history of irregular heartbeat liver disease low levels of magnesium or potassium in the blood an unusual or allergic reaction to ondansetron, granisetron, other medicines, foods, dyes, or preservatives or trying to get breast-feeding What should I watch for while using this medicine? Check with your doctor or health direct care supervisor as soon as you can if you have any sign of an allergic reaction. Hydrocodone Bitartrate, Acetaminophen Oral tablet What is this medicine? ACETAMINOPHEN; HYDROCODONE (a set a SKYLAR tanisha fen; casper droe KOE done) is a pain reliever. It is used to treat mild to moderate pain. How should I use this medicine? Take this medicine by mouth. Swallow it with a full glass of water. Follow the directions on the prescription label. If the medicine upsets your stomach, take the medicine with food or milk. Do not take more than you are told to take. Talk to your sterile processing tech regarding the use of this medicine in children. This medicine is not approved for use in children. What side effects may I notice from receiving this medicine? Side effects that you should report to your doctor or health direct care supervisor as soon as possible: allergic reactions like skin rash, itching or hives, swelling of the face, lips, or tongue breathing problems confusion feeling faint or lightheaded, falls stomach pain yellowing of the eyes or skin Side effects that usually do not require medical attention (report to your doctor or health direct care supervisor if they continue or are bothersome): nausea, vomiting stomach upset What may interact with this medicine? alcohol antihistamines isoniazid medicines for depression, anxiety, or psychotic disturbances medicines for sleep muscle relaxants naltrexone narcotic medicines (opiates) for pain phenobarbital ritonavir tramadol What if I miss a dose? If you miss a dose, take it as soon as you can. If it is almost time for your next dose, take only that dose. Do not take double or extra doses. Where should I keep my medicine? Keep out of the reach of children. This medicine can be abused. Keep your medicine in a safe place to protect it from theft. Do not share this medicine with anyone. Selling or giving away this medicine is dangerous and against the law. Store at room temperature between 15 and 30 degrees C (59 and 86 degrees F). Protect from light. Keep container tightly closed. Throw away any unused medicine after the expiration date. Discard unused medicine and used packaging carefully. Pets and children can be harmed if they find used or lost packages. What should I tell my health care provider before I take this medicine? They need to know if you have any of these conditions: brain tumor Crohn's disease, inflammatory bowel disease, or ulcerative colitis drink more than 3 alcohol-containing drinks per day drug abuse or addiction head injury heart or circulation problems kidney disease or problems going to the bathroom liver disease lung disease, asthma, or breathing problems an unusual or allergic reaction to acetaminophen, hydrocodone, other opioid analgesics, other medicines, foods, dyes, or preservatives or trying to get breast-feeding What should I watch for while using this medicine? Tell your doctor or health direct care supervisor if your pain does not go away, if it gets worse, or if you have new or a different type of pain. You may develop tolerance to the medicine. Tolerance means that you will need a higher dose of the medicine for pain relief. Tolerance is normal and is expected if you take the medicine for a long time. Do not suddenly stop taking your medicine because you may develop a severe reaction. Your body becomes used to the medicine. This does NOT mean you are addicted. Addiction is a behavior related to getting and using a drug for a non-medical reason. If you have pain, you have a medical reason to take pain medicine. Your doctor will tell you how much medicine to take. If your doctor wants you to stop the medicine, the dose will be slowly lowered over time to avoid any side effects. You may get drowsy or dizzy when you first start taking the medicine or change doses. Do not drive, use machinery, or do anything that may be dangerous until you know how the medicine affects you. Stand or sit up slowly. There are different types of narcotic medicines (opiates) for pain. If you take more than one type at the same time, you may have more side effects. Give your health care provider a list of all medicines you use. Your doctor will tell you how much medicine to take. Do not take more medicine than directed. Call emergency for help if you have problems breathing. The medicine will cause constipation. Try to have a bowel movement at least every 2 to 3 days. If you do not have a bowel movement for 3 days, call your doctor or health direct care supervisor. Too much acetaminophen can be very dangerous. Do not take Tylenol (acetaminophen) or medicines that contain acetaminophen with this medicine. Many non-prescription medicines contain acetaminophen. Always read the labels carefully. Ibuprofen Oral tablet What is this medicine? IBUPROFEN (eye BYOO proe fen) is a non-steroidal anti-inflammatory drug (NSAID). It is used for dental pain, fever, headaches or migraines, osteoarthritis, rheumatoid arthritis, or painful monthly periods. It can also relieve minor aches and pains caused by a cold, flu, or sore throat. How should I use this medicine? Take this medicine by mouth with a glass of water. Follow the directions on the prescription label. Take this medicine with food if your stomach gets upset. Try to not lie down for at least 10 minutes after you take the medicine. Take your medicine at regular intervals. Do not take your medicine more often than directed. A special MedGuide will be given to you by the pharmacist with each prescription and refill. Be sure to read this information carefully each time. Talk to your sterile processing tech regarding the use of this medicine in children. Special care may be needed. What side effects may I notice from receiving this medicine? Side effects that you should report to your doctor or health direct care supervisor as soon as possible: allergic reactions like skin rash, itching or hives, swelling of the face, lips, or tongue black or bloody stools, blood in the urine or in vomit breathing problems changes in vision chest pain general ill feeling or flu-like symptoms nausea or vomiting redness, blistering, peeling or loosening of the skin, including inside the mouth slurred speech or weakness on one side of the body stomach pain unexplained weight gain or swelling unusually weak or tired yellowing of eyes or skin Side effects that usually do not require medical attention (report to your doctor or health direct care supervisor if they continue or are bothersome): constipation or diarrhea dizziness gas or heartburn stomach upset What may interact with this medicine? Do not take this medicine with any of the following medications: cidofovir ketorolac methotrexate pemetrexed This medicine may also interact with the following medications: alcohol aspirin diuretics lithium other drugs for inflammation like prednisone warfarin What if I miss a dose? If you miss a dose, take it as soon as you can. If it is almost time for your next dose, take only that dose. Do not take double or extra doses. Where should I keep my medicine? Keep out of the reach of children. Store at room temperature between 15 and 30 degrees C (59 and 86 degrees F). Keep container tightly closed. Throw away any unused medicine after the expiration date. What should I tell my health care provider before I take this medicine? They need to know if you have any of these conditions: asthma cigarette smoker drink more than 3 alcohol containing drinks a day heart disease or circulation problems such as heart failure or leg edema (fluid retention) high blood pressure kidney disease liver disease stomach bleeding or ulcers an unusual or allergic reaction to ibuprofen, aspirin, other NSAIDS, other medicines, foods, dyes, or preservatives or trying to get breast-feeding What should I watch for while using this medicine? Tell your doctor or healthcare professional if your symptoms do not start to get better or if they get worse. This medicine does not prevent heart attack or stroke. In fact, this medicine may increase the chance of a heart attack or stroke. The chance may increase with longer use of this medicine and in people who have heart disease. If you take aspirin to prevent heart attack or stroke, talk with your doctor or health direct care supervisor. Do not take other medicines that contain aspirin, ibuprofen, or naproxen with this medicine. Side effects such as stomach upset, nausea, or ulcers may be more likely to occur. Many medicines available without a prescription should not be taken with this medicine. This medicine can cause ulcers and bleeding in the stomach and intestines at any time during treatment. Ulcers and bleeding can happen without warning symptoms and can cause . To reduce your risk, do not smoke cigarettes or drink alcohol while you are taking this medicine. You may get drowsy or dizzy. Do not drive, use machinery, or do anything that needs mental alertness until you know how this medicine affects you. Do not stand or sit up quickly, especially if you are an older patient. This reduces the risk of dizzy or fainting spells. This medicine can cause you to bleed more easily. Try to avoid damage to your teeth and gums when you brush or floss your teeth. Sulfamethoxazole, Trimethoprim Oral tablet What is this medicine? SULFAMETHOXAZOLE; TRIMETHOPRIM or SMX-TMP (suhl fuh meth OK qamar zohl; trye METH oh prim) is a combination of a sulfonamide antibiotic and a second antibiotic, trimethoprim. It is used to treat or prevent certain kinds of bacterial infections. It will not work for colds, flu, or other viral infections. How should I use this medicine? Take this medicine by mouth with a full glass of water. Follow the directions on the prescription label. Take your medicine at regular intervals. Do not take it more often than directed. Do not skip doses or stop your medicine early. Talk to your sterile processing tech regarding the use of this medicine in children. Special care may be needed. This medicine has been used in children as young as 2 months of age. What side effects may I notice from receiving this medicine? Side effects that you should report to your doctor or health direct care supervisor as soon as possible: allergic reactions like skin rash or hives, swelling of the face, lips, or tongue breathing problems fever or chills, sore throat irregular heartbeat, chest pain joint or muscle pain pain or difficulty passing urine red pinpoint spots on skin redness, blistering, peeling or loosening of the skin, including inside the mouth unusual bleeding or bruising unusually weak or tired yellowing of the eyes or skin Side effects that usually do not require medical attention (report to your doctor or health direct care supervisor if they continue or are bothersome): diarrhea dizziness headache loss of appetite nausea, vomiting nervousness What may interact with this medicine? Do not take this medicine with any of the following medications: aminobenzoate potassium dofetilide metronidazole This medicine may also interact with the following medications: YOLANDA inhibitors like benazepril, enalapril, lisinopril, and ramipril cyclosporine digoxin diuretics indomethacin medicines for diabetes methenamine methotrexate phenytoin potassium supplements pyrimethamine sulfinpyrazone tricyclic antidepressants warfarin What if I miss a dose? If you miss a dose, take it as soon as you can. If it is almost time for your next dose, take only that dose. Do not take double or extra doses. Where should I keep my medicine? Keep out of the reach of children. Store at room temperature between 20 to 25 degrees C (68 to 77 degrees F). Protect from light. Throw away any unused medicine after the expiration date. What should I tell my health care provider before I take this medicine? They need to know if you have any of these conditions: anemia asthma being treated with anticonvulsants if you frequently drink alcohol containing drinks kidney disease liver disease low level of folic acid or [id number] dehydrogenase poor nutrition or malabsorption porphyria severe allergies thyroid disorder an unusual or allergic reaction to sulfamethoxazole, trimethoprim, sulfa drugs, other medicines, foods, dyes, or preservatives or trying to get breast-feeding What should I watch for while using this medicine? Tell your doctor or health direct care supervisor if your symptoms do not improve. Drink several glasses of water a day to reduce the risk of kidney problems. Do not treat diarrhea with over the counter products. Contact your doctor if you have diarrhea that lasts more than 2 days or if it is severe and watery. This medicine can make you more sensitive to the sun. Keep out of the sun. If you cannot avoid being in the sun, wear protective clothing and use a sunscreen. Do not use sun lamps or tanning beds/booths. Clindamycin Hydrochloride Oral capsule What is this medicine? CLINDAMYCIN (JEFRY Dwyer) is a lincosamide antibiotic. It is used to treat certain kinds of bacterial infections. It will not work for colds, flu, or other viral infections. How should I use this medicine? Take this medicine by mouth with a full glass of water. Follow the directions on the prescription label. You can take this medicine with food or on an empty stomach. If the medicine upsets your stomach, take it with food. Take your medicine at regular intervals. Do not take your medicine more often than directed. Take all of your medicine as directed even if you think your are better. Do not skip doses or stop your medicine early. Talk to your sterile processing tech regarding the use of this medicine in children. Special care may be needed. What side effects may I notice from receiving this medicine? Side effects that you should report to your doctor or health direct care supervisor as soon as possible: allergic reactions like skin rash, itching or hives, swelling of the face, lips, or tongue dark urine pain on swallowing redness, blistering, peeling or loosening of the skin, including inside the mouth unusual bleeding or bruising unusually weak or tired yellowing of eyes or skin Side effects that usually do not require medical attention (report to your doctor or health direct care supervisor if they continue or are bothersome): diarrhea itching in the rectal or genital area joint pain nausea, vomiting stomach pain What may interact with this medicine? chloramphenicol erythromycin kaolin products What if I miss a dose? If you miss a dose, take it as soon as you can. If it is almost time for your next dose, take only that dose. Do not take double or extra doses. Where should I keep my medicine? Keep out of the reach of children. Store at room temperature between 20 and 25 degrees C (68 and 77 degrees F). Throw away any unused medicine after the expiration date. What should I tell my health care provider before I take this medicine? They need to know if you have any of these conditions: kidney disease liver disease stomach problems like colitis an unusual or allergic reaction to clindamycin, lincomycin, or other medicines, foods, dyes like tartrazine or preservatives or trying to get breast-feeding What should I watch for while using this medicine? Tell your doctor or healthcare professional if your symptoms do not start to get better or if they get worse. Do not treat diarrhea with over the counter products. Contact your doctor if you have diarrhea that lasts more than 2 days or if it is severe and watery. Lorazepam Oral tablet What is this medicine? LORAZEPAM (rolanda A ze yoni) is a benzodiazepine. It is used to treat anxiety. How should I use this medicine? Take this medicine by mouth with a glass of water. Follow the directions on the prescription label. If it upsets your stomach, take it with food or milk. Take your medicine at regular intervals. Do not take it more often than directed. Do not stop taking except on the advice of your doctor or health direct care supervisor. Talk to your sterile processing tech regarding the use of this medicine in children. Special care may be needed. What side effects may I notice from receiving this medicine? Side effects that you should report to your doctor or health direct care supervisor as soon as possible: changes in vision confusion depression mood changes, excitability or aggressive behavior movement difficulty, staggering or jerky movements muscle cramps restlessness weakness or tiredness Side effects that usually do not require medical attention (report to your doctor or health direct care supervisor if they continue or are bothersome): constipation or diarrhea difficulty sleeping, nightmares dizziness, drowsiness headache nausea, vomiting What may interact with this medicine? barbiturate medicines for inducing sleep or treating seizures, like phenobarbital clozapine medicines for depression, mental problems or psychiatric disturbances medicines for sleep phenytoin probenecid theophylline valproic acid What if I miss a dose? If you miss a dose, take it as soon as you can. If it is almost time for your next dose, take only that dose. Do not take double or extra doses. Where should I keep my medicine? Keep out of the reach of children. This medicine can be abused. Keep your medicine in a safe place to protect it from theft. Do not share this medicine with anyone. Selling or giving away this medicine is dangerous and against the law. Store at room temperature between 20 and 25 degrees C (68 and 77 degrees F). Protect from light. Keep container tightly closed. Throw away any unused medicine after the expiration date. What should I tell my health care provider before I take this medicine? They need to know if you have any of these conditions: alcohol or drug abuse problem bipolar disorder, depression, psychosis or other mental health condition glaucoma kidney or liver disease lung disease or breathing difficulties myasthenia gravis Parkinson's disease seizures or a history of seizures suicidal thoughts an unusual or allergic reaction to lorazepam, other benzodiazepines, foods, dyes, or preservatives or trying to get breast-feeding What should I watch for while using this medicine? Visit your doctor or health direct care supervisor for regular checks on your progress. Your body may become dependent on this medicine, ask your doctor or health direct care supervisor if you still need to take it. However, if you have been taking this medicine regularly for some time, do not suddenly stop taking it. You must gradually reduce the dose or you may get severe side effects. Ask your doctor or health direct care supervisor for advice before increasing or decreasing the dose. Even after you stop taking this medicine it can still affect your body for several days. You may get drowsy or dizzy. Do not drive, use machinery, or do anything that needs mental alertness until you know how this medicine affects you. To reduce the risk of dizzy and fainting spells, do not stand or sit up quickly, especially if you are an older patient. Alcohol may increase dizziness and drowsiness. Avoid alcoholic drinks. Do not treat yourself for coughs, colds or allergies without asking your doctor or health direct care supervisor for advice. Some ingredients can increase possible side effects. You have been given the following additional information: Ondansetron Oral disintegrating tablet Hydrocodone Bitartrate, Acetaminophen Oral tablet Ibuprofen Oral tablet Sulfamethoxazole, Trimethoprim Oral tablet Clindamycin Hydrochloride Oral capsule Lorazepam Oral tablet (Electronically signed by Felicita Jasso A.R.N.P. 09/03/2016 22:25)
--- NOTE | 2016-09-03 22:25 | ED DISCHARGE INSTRUCTIONS ---
Patient: ARABELLA NIEVES General Instructions [facility] VisitID: [id number] [address] [place] [address] 45y, M Registration Date/Time: 09/03/2016 Wound check. Single deep healing laceration to the right thigh.Treatment of laceration not delayed. No infection or foreign body present. INSTRUCTIONS Protect wound and keep wound area clean. You may wash wounds briefly, then dry. Warnings: CONTROLLED SUBSTANCE WARNINGS: The reason for controlled substance is related to an acute illness. Reviewed the risks and benefits of the medication and tolerance and dependence. Discussed warnings with the patient (Do NOT mix any prescriptions with any drugs or alcohol!). GENERAL WARNINGS: Return or contact your physician immediately if your condition worsens or changes unexpectedly, if not improving as expected, or if other problems arise. Specifically return if problem worsens. Prescription Medications: Zofran 4 mg: Take 1 orally every six hours as needed for nausea/vomiting. Dispense ten (10). No refills. Substitution is permissible. [place] 5 mg / 325 mg tablets: take 1 to 2 orally every 6 hours as needed for pain. Dispense fifteen (15). No refills. Substitution is permissible. Motrin 800 mg tablets: take 1 tablet orally every 8 hours as needed for pain. Dispense thirty (30). No refills. Substitution is permissible. Bactrim DS 800 mg / 160 mg: Take 1 tablet orally every 12 hours for 7 days. Dispense fourteen (14). No refills. Substitution is permissible. Clindamycin 300 mg: take 1 capsule orally every 6 hours for 7 days. No refills. Ativan 1 mg: Take 1 orally every 8 hours as needed for anxiety. Dispense fifteen (15). No refills. Substitution is permissible. Follow-up: Follow up with a wound care clinic Monday as scheduled even if well. Summary of care provided to patient. Follow up with doctor counselor Monday as scheduled even if well. Summary of care provided to patient. Understanding of the discharge instructions verbalized by patient and family. ADDITIONAL INFORMATION Ondansetron Oral disintegrating tablet What is this medicine? ONDANSETRON (on LASHAUN se david) is used to treat nausea and vomiting caused by chemotherapy. It is also used to prevent or treat nausea and vomiting after surgery. How should I use this medicine? These tablets are made to dissolve in the mouth. Do not try to push the tablet through the foil backing. With dry hands, peel away the foil backing and gently remove the tablet. Place the tablet in the mouth and allow it to dissolve, then swallow. While you may take these tablets with water, it is not necessary to do so. Talk to your planning advisor regarding the use of this medicine in children. Special care may be needed. What side effects may I notice from receiving this medicine? Side effects that you should report to your doctor or health grounds caretaker as soon as possible: allergic reactions like skin rash, itching or hives, swelling of the face, lips, or tongue breathing problems dizziness fast or irregular heartbeat feeling faint or lightheaded, falls fever and chills swelling of the hands and feet tightness in the chest Side effects that usually do not require medical attention (report to your doctor or health grounds caretaker if they continue or are bothersome): constipation or diarrhea headache What may interact with this medicine? Do not take this medicine with any of the following medications: -apomorphine -cisapride -dofetilide -dronedarone -pimozide -thioridazine -ziprasidone This medicine may also interact with the following medications: -carbamazepine -phenytoin -rifampicin -tramadol -other medicines that prolong the QT interval (cause an abnormal heart rhythm) What if I miss a dose? If you miss a dose, take it as soon as you can. If it is almost time for your next dose, take only that dose. Do not take double or extra doses. Where should I keep my medicine? Keep out of the reach of children. Store between 2 and 30 degrees C (36 and 86 degrees F). Throw away any unused medicine after the expiration date. What should I tell my health care provider before I take this medicine? They need to know if you have any of these conditions: heart disease history of irregular heartbeat liver disease low levels of magnesium or potassium in the blood an unusual or allergic reaction to ondansetron, granisetron, other medicines, foods, dyes, or preservatives or trying to get breast-feeding What should I watch for while using this medicine? Check with your doctor or health grounds caretaker as soon as you can if you have any sign of an allergic reaction. Hydrocodone Bitartrate, Acetaminophen Oral tablet What is this medicine? ACETAMINOPHEN; HYDROCODONE (a set a SKYLAR tanisha fen; casper droe KOE done) is a pain reliever. It is used to treat mild to moderate pain. How should I use this medicine? Take this medicine by mouth. Swallow it with a full glass of water. Follow the directions on the prescription label. If the medicine upsets your stomach, take the medicine with food or milk. Do not take more than you are told to take. Talk to your planning advisor regarding the use of this medicine in children. This medicine is not approved for use in children. What side effects may I notice from receiving this medicine? Side effects that you should report to your doctor or health grounds caretaker as soon as possible: allergic reactions like skin rash, itching or hives, swelling of the face, lips, or tongue breathing problems confusion feeling faint or lightheaded, falls stomach pain yellowing of the eyes or skin Side effects that usually do not require medical attention (report to your doctor or health grounds caretaker if they continue or are bothersome): nausea, vomiting stomach upset What may interact with this medicine? alcohol antihistamines isoniazid medicines for depression, anxiety, or psychotic disturbances medicines for sleep muscle relaxants naltrexone narcotic medicines (opiates) for pain phenobarbital ritonavir tramadol What if I miss a dose? If you miss a dose, take it as soon as you can. If it is almost time for your next dose, take only that dose. Do not take double or extra doses. Where should I keep my medicine? Keep out of the reach of children. This medicine can be abused. Keep your medicine in a safe place to protect it from theft. Do not share this medicine with anyone. Selling or giving away this medicine is dangerous and against the law. Store at room temperature between 15 and 30 degrees C (59 and 86 degrees F). Protect from light. Keep container tightly closed. Throw away any unused medicine after the expiration date. Discard unused medicine and used packaging carefully. Pets and children can be harmed if they find used or lost packages. What should I tell my health care provider before I take this medicine? They need to know if you have any of these conditions: brain tumor Crohn's disease, inflammatory bowel disease, or ulcerative colitis drink more than 3 alcohol-containing drinks per day drug abuse or addiction head injury heart or circulation problems kidney disease or problems going to the bathroom liver disease lung disease, asthma, or breathing problems an unusual or allergic reaction to acetaminophen, hydrocodone, other opioid analgesics, other medicines, foods, dyes, or preservatives or trying to get breast-feeding What should I watch for while using this medicine? Tell your doctor or health grounds caretaker if your pain does not go away, if it gets worse, or if you have new or a different type of pain. You may develop tolerance to the medicine. Tolerance means that you will need a higher dose of the medicine for pain relief. Tolerance is normal and is expected if you take the medicine for a long time. Do not suddenly stop taking your medicine because you may develop a severe reaction. Your body becomes used to the medicine. This does NOT mean you are addicted. Addiction is a behavior related to getting and using a drug for a non-medical reason. If you have pain, you have a medical reason to take pain medicine. Your doctor will tell you how much medicine to take. If your doctor wants you to stop the medicine, the dose will be slowly lowered over time to avoid any side effects. You may get drowsy or dizzy when you first start taking the medicine or change doses. Do not drive, use machinery, or do anything that may be dangerous until you know how the medicine affects you. Stand or sit up slowly. There are different types of narcotic medicines (opiates) for pain. If you take more than one type at the same time, you may have more side effects. Give your health care provider a list of all medicines you use. Your doctor will tell you how much medicine to take. Do not take more medicine than directed. Call emergency for help if you have problems breathing. The medicine will cause constipation. Try to have a bowel movement at least every 2 to 3 days. If you do not have a bowel movement for 3 days, call your doctor or health grounds caretaker. Too much acetaminophen can be very dangerous. Do not take Tylenol (acetaminophen) or medicines that contain acetaminophen with this medicine. Many non-prescription medicines contain acetaminophen. Always read the labels carefully. Ibuprofen Oral tablet What is this medicine? IBUPROFEN (eye BYOO proe fen) is a non-steroidal anti-inflammatory drug (NSAID). It is used for dental pain, fever, headaches or migraines, osteoarthritis, rheumatoid arthritis, or painful monthly periods. It can also relieve minor aches and pains caused by a cold, flu, or sore throat. How should I use this medicine? Take this medicine by mouth with a glass of water. Follow the directions on the prescription label. Take this medicine with food if your stomach gets upset. Try to not lie down for at least 10 minutes after you take the medicine. Take your medicine at regular intervals. Do not take your medicine more often than directed. A special MedGuide will be given to you by the pharmacist with each prescription and refill. Be sure to read this information carefully each time. Talk to your planning advisor regarding the use of this medicine in children. Special care may be needed. What side effects may I notice from receiving this medicine? Side effects that you should report to your doctor or health grounds caretaker as soon as possible: allergic reactions like skin rash, itching or hives, swelling of the face, lips, or tongue black or bloody stools, blood in the urine or in vomit breathing problems changes in vision chest pain general ill feeling or flu-like symptoms nausea or vomiting redness, blistering, peeling or loosening of the skin, including inside the mouth slurred speech or weakness on one side of the body stomach pain unexplained weight gain or swelling unusually weak or tired yellowing of eyes or skin Side effects that usually do not require medical attention (report to your doctor or health grounds caretaker if they continue or are bothersome): constipation or diarrhea dizziness gas or heartburn stomach upset What may interact with this medicine? Do not take this medicine with any of the following medications: cidofovir ketorolac methotrexate pemetrexed This medicine may also interact with the following medications: alcohol aspirin diuretics lithium other drugs for inflammation like prednisone warfarin What if I miss a dose? If you miss a dose, take it as soon as you can. If it is almost time for your next dose, take only that dose. Do not take double or extra doses. Where should I keep my medicine? Keep out of the reach of children. Store at room temperature between 15 and 30 degrees C (59 and 86 degrees F). Keep container tightly closed. Throw away any unused medicine after the expiration date. What should I tell my health care provider before I take this medicine? They need to know if you have any of these conditions: asthma cigarette smoker drink more than 3 alcohol containing drinks a day heart disease or circulation problems such as heart failure or leg edema (fluid retention) high blood pressure kidney disease liver disease stomach bleeding or ulcers an unusual or allergic reaction to ibuprofen, aspirin, other NSAIDS, other medicines, foods, dyes, or preservatives or trying to get breast-feeding What should I watch for while using this medicine? Tell your doctor or healthcare professional if your symptoms do not start to get better or if they get worse. This medicine does not prevent heart attack or stroke. In fact, this medicine may increase the chance of a heart attack or stroke. The chance may increase with longer use of this medicine and in people who have heart disease. If you take aspirin to prevent heart attack or stroke, talk with your doctor or health grounds caretaker. Do not take other medicines that contain aspirin, ibuprofen, or naproxen with this medicine. Side effects such as stomach upset, nausea, or ulcers may be more likely to occur. Many medicines available without a prescription should not be taken with this medicine. This medicine can cause ulcers and bleeding in the stomach and intestines at any time during treatment. Ulcers and bleeding can happen without warning symptoms and can cause . To reduce your risk, do not smoke cigarettes or drink alcohol while you are taking this medicine. You may get drowsy or dizzy. Do not drive, use machinery, or do anything that needs mental alertness until you know how this medicine affects you. Do not stand or sit up quickly, especially if you are an older patient. This reduces the risk of dizzy or fainting spells. This medicine can cause you to bleed more easily. Try to avoid damage to your teeth and gums when you brush or floss your teeth. Sulfamethoxazole, Trimethoprim Oral tablet What is this medicine? SULFAMETHOXAZOLE; TRIMETHOPRIM or SMX-TMP (suhl fuh meth OK qamar zohl; trye METH oh prim) is a combination of a sulfonamide antibiotic and a second antibiotic, trimethoprim. It is used to treat or prevent certain kinds of bacterial infections. It will not work for colds, flu, or other viral infections. How should I use this medicine? Take this medicine by mouth with a full glass of water. Follow the directions on the prescription label. Take your medicine at regular intervals. Do not take it more often than directed. Do not skip doses or stop your medicine early. Talk to your planning advisor regarding the use of this medicine in children. Special care may be needed. This medicine has been used in children as young as 2 months of age. What side effects may I notice from receiving this medicine? Side effects that you should report to your doctor or health grounds caretaker as soon as possible: allergic reactions like skin rash or hives, swelling of the face, lips, or tongue breathing problems fever or chills, sore throat irregular heartbeat, chest pain joint or muscle pain pain or difficulty passing urine red pinpoint spots on skin redness, blistering, peeling or loosening of the skin, including inside the mouth unusual bleeding or bruising unusually weak or tired yellowing of the eyes or skin Side effects that usually do not require medical attention (report to your doctor or health grounds caretaker if they continue or are bothersome): diarrhea dizziness headache loss of appetite nausea, vomiting nervousness What may interact with this medicine? Do not take this medicine with any of the following medications: aminobenzoate potassium dofetilide metronidazole This medicine may also interact with the following medications: YOLANDA inhibitors like benazepril, enalapril, lisinopril, and ramipril cyclosporine digoxin diuretics indomethacin medicines for diabetes methenamine methotrexate phenytoin potassium supplements pyrimethamine sulfinpyrazone tricyclic antidepressants warfarin What if I miss a dose? If you miss a dose, take it as soon as you can. If it is almost time for your next dose, take only that dose. Do not take double or extra doses. Where should I keep my medicine? Keep out of the reach of children. Store at room temperature between 20 to 25 degrees C (68 to 77 degrees F). Protect from light. Throw away any unused medicine after the expiration date. What should I tell my health care provider before I take this medicine? They need to know if you have any of these conditions: anemia asthma being treated with anticonvulsants if you frequently drink alcohol containing drinks kidney disease liver disease low level of folic acid or [id number] dehydrogenase poor nutrition or malabsorption porphyria severe allergies thyroid disorder an unusual or allergic reaction to sulfamethoxazole, trimethoprim, sulfa drugs, other medicines, foods, dyes, or preservatives or trying to get breast-feeding What should I watch for while using this medicine? Tell your doctor or health grounds caretaker if your symptoms do not improve. Drink several glasses of water a day to reduce the risk of kidney problems. Do not treat diarrhea with over the counter products. Contact your doctor if you have diarrhea that lasts more than 2 days or if it is severe and watery. This medicine can make you more sensitive to the sun. Keep out of the sun. If you cannot avoid being in the sun, wear protective clothing and use a sunscreen. Do not use sun lamps or tanning beds/booths. Clindamycin Hydrochloride Oral capsule What is this medicine? CLINDAMYCIN (JEFRY Dwyer) is a lincosamide antibiotic. It is used to treat certain kinds of bacterial infections. It will not work for colds, flu, or other viral infections. How should I use this medicine? Take this medicine by mouth with a full glass of water. Follow the directions on the prescription label. You can take this medicine with food or on an empty stomach. If the medicine upsets your stomach, take it with food. Take your medicine at regular intervals. Do not take your medicine more often than directed. Take all of your medicine as directed even if you think your are better. Do not skip doses or stop your medicine early. Talk to your planning advisor regarding the use of this medicine in children. Special care may be needed. What side effects may I notice from receiving this medicine? Side effects that you should report to your doctor or health grounds caretaker as soon as possible: allergic reactions like skin rash, itching or hives, swelling of the face, lips, or tongue dark urine pain on swallowing redness, blistering, peeling or loosening of the skin, including inside the mouth unusual bleeding or bruising unusually weak or tired yellowing of eyes or skin Side effects that usually do not require medical attention (report to your doctor or health grounds caretaker if they continue or are bothersome): diarrhea itching in the rectal or genital area joint pain nausea, vomiting stomach pain What may interact with this medicine? chloramphenicol erythromycin kaolin products What if I miss a dose? If you miss a dose, take it as soon as you can. If it is almost time for your next dose, take only that dose. Do not take double or extra doses. Where should I keep my medicine? Keep out of the reach of children. Store at room temperature between 20 and 25 degrees C (68 and 77 degrees F). Throw away any unused medicine after the expiration date. What should I tell my health care provider before I take this medicine? They need to know if you have any of these conditions: kidney disease liver disease stomach problems like colitis an unusual or allergic reaction to clindamycin, lincomycin, or other medicines, foods, dyes like tartrazine or preservatives or trying to get breast-feeding What should I watch for while using this medicine? Tell your doctor or healthcare professional if your symptoms do not start to get better or if they get worse. Do not treat diarrhea with over the counter products. Contact your doctor if you have diarrhea that lasts more than 2 days or if it is severe and watery. Lorazepam Oral tablet What is this medicine? LORAZEPAM (rolanda A ze yoni) is a benzodiazepine. It is used to treat anxiety. How should I use this medicine? Take this medicine by mouth with a glass of water. Follow the directions on the prescription label. If it upsets your stomach, take it with food or milk. Take your medicine at regular intervals. Do not take it more often than directed. Do not stop taking except on the advice of your doctor or health grounds caretaker. Talk to your planning advisor regarding the use of this medicine in children. Special care may be needed. What side effects may I notice from receiving this medicine? Side effects that you should report to your doctor or health grounds caretaker as soon as possible: changes in vision confusion depression mood changes, excitability or aggressive behavior movement difficulty, staggering or jerky movements muscle cramps restlessness weakness or tiredness Side effects that usually do not require medical attention (report to your doctor or health grounds caretaker if they continue or are bothersome): constipation or diarrhea difficulty sleeping, nightmares dizziness, drowsiness headache nausea, vomiting What may interact with this medicine? barbiturate medicines for inducing sleep or treating seizures, like phenobarbital clozapine medicines for depression, mental problems or psychiatric disturbances medicines for sleep phenytoin probenecid theophylline valproic acid What if I miss a dose? If you miss a dose, take it as soon as you can. If it is almost time for your next dose, take only that dose. Do not take double or extra doses. Where should I keep my medicine? Keep out of the reach of children. This medicine can be abused. Keep your medicine in a safe place to protect it from theft. Do not share this medicine with anyone. Selling or giving away this medicine is dangerous and against the law. Store at room temperature between 20 and 25 degrees C (68 and 77 degrees F). Protect from light. Keep container tightly closed. Throw away any unused medicine after the expiration date. What should I tell my health care provider before I take this medicine? They need to know if you have any of these conditions: alcohol or drug abuse problem bipolar disorder, depression, psychosis or other mental health condition glaucoma kidney or liver disease lung disease or breathing difficulties myasthenia gravis Parkinson's disease seizures or a history of seizures suicidal thoughts an unusual or allergic reaction to lorazepam, other benzodiazepines, foods, dyes, or preservatives or trying to get breast-feeding What should I watch for while using this medicine? Visit your doctor or health grounds caretaker for regular checks on your progress. Your body may become dependent on this medicine, ask your doctor or health grounds caretaker if you still need to take it. However, if you have been taking this medicine regularly for some time, do not suddenly stop taking it. You must gradually reduce the dose or you may get severe side effects. Ask your doctor or health grounds caretaker for advice before increasing or decreasing the dose. Even after you stop taking this medicine it can still affect your body for several days. You may get drowsy or dizzy. Do not drive, use machinery, or do anything that needs mental alertness until you know how this medicine affects you. To reduce the risk of dizzy and fainting spells, do not stand or sit up quickly, especially if you are an older patient. Alcohol may increase dizziness and drowsiness. Avoid alcoholic drinks. Do not treat yourself for coughs, colds or allergies without asking your doctor or health grounds caretaker for advice. Some ingredients can increase possible side effects. You have been given the following additional information: Ondansetron Oral disintegrating tablet Hydrocodone Bitartrate, Acetaminophen Oral tablet Ibuprofen Oral tablet Sulfamethoxazole, Trimethoprim Oral tablet Clindamycin Hydrochloride Oral capsule Lorazepam Oral tablet (Electronically signed by Felicita Jasso A.R.N.P. 09/03/2016 22:25)
--- NOTE | 2016-09-03 22:26 | ED MED RECONCILIATION SUMMARY ---
Patient: ARABELLA NIEVES Medication Reconciliation Report [facility] VisitID: [id number] [address] [place] [address] 45y, M Registration Date/Time: 09/03/2016 Weight: 91.1 kg Height/Length: 73 in. BMI: 26.5 ALLERGIES: No Known Drug Allergy The patient's Home Medications are listed below: NONE. The source(s) of the original Home Medication information: patient The following Medications were given to the patient in the Emergency Department: None. The following Medications were prescribed to the patient: Zofran 4 mg: Take 1 orally every six hours as needed for nausea/vomiting. Dispense ten (10). No refills. Substitution is permissible. -- Felicita Jasso, A.R.N.P. [place] 5 mg / 325 mg tablets: take 1 to 2 orally every 6 hours as needed for pain. Dispense fifteen (15). No refills. Substitution is permissible. -- Felicita Jasso A.R.N.P. Motrin 800 mg tablets: take 1 tablet orally every 8 hours as needed for pain. Dispense thirty (30). No refills. Substitution is permissible. -- Felicita Jasso, A.R.N.P. Bactrim DS 800 mg / 160 mg: Take 1 tablet orally every 12 hours for 7 days. Dispense fourteen (14). No refills. Substitution is permissible. -- Felicita Jasso A.R.N.P. Clindamycin 300 mg: take 1 capsule orally every 6 hours for 7 days. No refills. -- Felicita Jasso A.R.N.P. Ativan 1 mg: Take 1 orally every 8 hours as needed for anxiety. Dispense fifteen (15). No refills. Substitution is permissible. -- Felicita Jasso A.R.N.P.
--- NOTE | 2016-09-03 22:26 | ED MED RECONCILIATION SUMMARY ---
Patient: ARABELLA NIEVES Medication Reconciliation Report [facility] VisitID: [id number] [address] [place] [address] 45y, M Registration Date/Time: 09/03/2016 Weight: 91.1 kg Height/Length: 73 in. BMI: 26.5 ALLERGIES: No Known Drug Allergy The patient's Home Medications are listed below: NONE. The source(s) of the original Home Medication information: patient The following Medications were given to the patient in the Emergency Department: None. The following Medications were prescribed to the patient: Zofran 4 mg: Take 1 orally every six hours as needed for nausea/vomiting. Dispense ten (10). No refills. Substitution is permissible. -- Felicita Jasso, A.R.N.P. [place] 5 mg / 325 mg tablets: take 1 to 2 orally every 6 hours as needed for pain. Dispense fifteen (15). No refills. Substitution is permissible. -- Felicita Jasso A.R.N.P. Motrin 800 mg tablets: take 1 tablet orally every 8 hours as needed for pain. Dispense thirty (30). No refills. Substitution is permissible. -- Felicita Jasso, A.R.N.P. Bactrim DS 800 mg / 160 mg: Take 1 tablet orally every 12 hours for 7 days. Dispense fourteen (14). No refills. Substitution is permissible. -- Felicita Jasso A.R.N.P. Clindamycin 300 mg: take 1 capsule orally every 6 hours for 7 days. No refills. -- Felicita Jasso A.R.N.P. Ativan 1 mg: Take 1 orally every 8 hours as needed for anxiety. Dispense fifteen (15). No refills. Substitution is permissible. -- Felicita Jasso A.R.N.P.
--- NOTE | 2016-09-03 22:26 | ED MAR SUMMARY ---
..... Medication Administration Record [facility] [address], [place] [id number] Patient: ARABELLA NIEVES Visit ID: [id number] 45y, M Weight: 91.1 kg Height/Length: 73 in BMI: 26.5 ALLERGIES: No Known Drug Allergy
--- NOTE | 2016-09-03 22:26 | ED MAR SUMMARY ---
..... Medication Administration Record [facility] [address] [place], [place] [id number] Patient: ARABELLA NIEVES Visit ID: [id number] 45y, M Weight: 91.1 kg Height/Length: 73 in BMI: 26.5 ALLERGIES: No Known Drug Allergy
== END 2016-09-03 23:10 | disposition home or self-care (01) ==
LOC: ED SRH 21:07
DX: S71.111D Laceration without foreign body, right thigh, subsequent encounter (principal); X58.XXXD Exposure to other specified factors, subsequent encounter; F17.219 Nicotine dependence, cigarettes, with unspecified nicotine-induced disorders